=== PATIENT | female | born 1960 | race Caucasian/White ===

== ENCOUNTER 2025-06-30 10:33 | Outpatient (CLI) | payer MEDICARE, OTHER | END 2025-06-30 10:34 | disposition home or self-care (01) | LOC: BICMAMMO 10:33 | PROVIDERS: ATTEND Clinical Nurse Specialist | DX: Z12.31 Encounter for screening mammogram for malignant neoplasm of breast (principal); M85.80 Other specified disorders of bone density and structure, unspecified site; Z78.0 Asymptomatic menopausal state | CPT/HCPCS: 77063; 77067; 77080 ==